=== PATIENT | female | born 1960 | race Two or more races ===

== ENCOUNTER 2019-06-24 07:51 | Outpatient (CLI) | payer OTHER ==
[2019-06-27] MEDS ORDERED: ASPIR 8181 MG PO (15:26)
[2019-06-27] MEDS ORDERED: CRESTOR20 MG PO (15:26)
[2019-06-27] MEDS ORDERED: METFORMIN HCL500 M3 PO (15:26)
[2019-06-27] MEDS ORDERED: TOPROL XL100 M1 PO (15:27)
[2019-06-27] MEDS ORDERED: ZESTRIL10 M1 PO (15:27)
[2019-06-27] MEDS ORDERED: VITAMIN D400 UNI2 PO (15:30)
[2019-06-27] MEDS ORDERED: HYDROCHLOROTH12.5 M1 PO (15:31)
[2019-06-27] MEDS ORDERED: NORFLEX100MG PO (15:32)
== END 2019-06-24 08:13 | disposition home or self-care (01) ==
LOC: LAB 07:51
DX: D64.89 Other specified anemias (principal); E88.89 Other specified metabolic disorders; D68.8 Other specified coagulation defects; N39.0 Urinary tract infection, site not specified; Z22.322 Carrier or suspected carrier of Methicillin resistant Staphylococcus aureus; Z76.89 Persons encountering health services in other specified circumstances; I49.8 Other specified cardiac arrhythmias; I10 Essential (primary) hypertension

== ENCOUNTER → 2019-06-27 06:00 | Outpatient (CLI) | payer OTHER ==
[~2019-06-27 06:00] MED LIST: ASPIR 8181 MG PO; CRESTOR20 MG PO; HYDROCHLOROTH12.5 M1 PO; METFORMIN HCL500 M3 PO; NORFLEX100MG PO; TOPROL XL100 M1 PO; VITAMIN D400 UNI2 PO; ZESTRIL10 M1 PO
== END | disposition home or self-care (01) ==
LOC: LAB 06:00 → EDSTATUS 07-01 07:00 → CIR.AMB 07-01 07:00
DX: M25.774 Osteophyte, right foot (principal); M76.61 Achilles tendinitis, right leg